=== PATIENT | female | born 1940 | race Caucasian/White ===

== ENCOUNTER → 2017-02-06 | Outpatient (CLI) | payer MEDICARE ==
[2017-02-06 09:11] LABS: ALT 39 U/L (9-52); AST 29 U/L (14-36); Alkaline Phosphatase 72 U/L (38-126); Anion Gap 10 mmol/L; Blood Urea Nitrogen 17 mg/dL (7-17); Calcium 9.4 mg/dL (8.4-10.2); Carbon Dioxide 26 mmol/L (22-30); Chloride 105 mmol/L (98-107); Cholesterol 121 mg/dL (<200); Glucose 117 mg/dL (74-99); HDL Cholesterol 52 mg/dL (40-60); Non-African American GFR(MDRD) >60 (>60 ml/min/1.73 sqM); Potassium 4.5 mmol/L (3.5-5.1); Sodium 141 mmol/L (137-145); Total Bilirubin 0.4 mg/dL (0.2-1.3); Total Protein 6.8 g/dL (6.3-8.2); Triglycerides 89 mg/dL (<150)
== END | disposition home or self-care (01) ==
LOC: LABWHC1 08:10
PROVIDERS: ATTEND Internal Medicine Interventional Cardiology
DX: E78.2 Mixed hyperlipidemia (principal)
CPT/HCPCS: 36415; 80053; 80061

== ENCOUNTER → 2017-03-30 | Outpatient (CLI) | payer MEDICARE ==
--- NOTE | 2017-03-31 05:43 | CONS ---
Consultation note for sleep apnea. 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 The patient is known to have coronary artery disease and she had undergone a coronary stent several years back. Dr. Chong, her manager small business, was suspicious that she may have an underlying sleep breathing disorder. She snores. She has an overbite. She is obese with a BMI of 32. She has a thick neck. She reports to go to bed around 10 p.m. She wakes up at 6 a.m. in the morning. She feels a bit fatigued and not refreshed. She wakes up and watches the news and drinks coffee. She is able to get by the day without having to take a nap in the morning; however, in the afternoon she may take a nap depending on whether she is feeling tired and sleepy. She prefers to sleep on her side. Denies waking up in the middle of the night gasping for air or with any choking sensation. However, she has nocturia. She has gained some weight over the years and she is around 10 to 15 pounds above her original body weight over the past 5 years. No nocturnal heartburn. She does clench and has some mild grinding of the teeth and she wears a bite guard. She is to a dentist and her daughter is a dentist and she has special interest in designing appliance for sleep apnea in addition. PAST MEDICAL HISTORY: 1. Obesity. 2. Coronary artery disease, previous coronary stenting. 3. Hyperlipidemia. 4. Clenching and grinding of the teeth. SURGICAL HISTORY: Surgical history includes cardiac catheterization, insertion of a stent. This was done in [place], [place]. ALLERGIES: Allergies are not known. MEDICATIONS: Medications are ( ) 5 mg p.o. q. day; Lipitor 40 mg p.o. q. day, aspirin 81 mg p.o. q. day, vitamin D3, 2000 units q. day and multivitamin 1 tablet a day. SOCIAL HISTORY: The patient is a nonsmoker, no history of alcoholism, no history of IV drugs. FAMILY HISTORY: Brother has obstructive sleep apnea. REVIEW OF SYSTEMS: Twelve point review of systems was done and all of the positive findings were mentioned above in the history of present illness. PHYSICAL EXAMINATION: BP 166/64, pulse 74, respirations 16, temperature 97.5, saturation 95% on room air. Weight is 184. Height is 5 feet 3 inches. Neck size is 16-1/4. GENERAL APPEARANCE: Calm, comfortable. HEENT: There is overbite, probably around half an inch. Crowding of posterior pharynx, Mallampati class 3. Some mild grinding of the teeth. She has a short thick neck. LUNGS: Clear to auscultation. HEART: Sounds regular rate and rhythm. Normal S1, S2. No S3s, no murmurs. ABDOMEN: Soft, nontender. No organomegaly. EXTREMITIES: No edema, no cyanosis or clubbing. IMPRESSION: 1. Loud snoring with suspected obstructive sleep apnea, currently under investigation. 2. Coronary artery disease with previous coronary stent. 3. Hyperlipidemia. 4. Overbite. 5. Grinding/clenching. PLAN: 1. Encourage weight loss. 2. Proceed with a home sleep study to screen this patient for obstructive sleep apnea. 3. The patient comes in from a family dentist and she may decide to go with a dental oral appliance if she is confirmed to have mild to moderate obstructive sleep apnea. 4. Will continue to follow, make further recommendations based on her sleep results. THELMA
== END ==
LOC: SLEEP 14:28
PROVIDERS: ATTEND Internal Medicine Critical Care Medicine
DX: R06.83 Snoring (principal); I25.10 Atherosclerotic heart disease of native coronary artery without angina pectoris; E78.5 Hyperlipidemia, unspecified; G47.63 Sleep related bruxism; Z79.899 Other long term (current) drug therapy
CPT/HCPCS: 99211

== ENCOUNTER 2017-07-28 08:00 | Day surgery (SDC) | payer MEDICARE ==
[2017-07-16 15:39] VITALS: BMI 32.2
[~2017-07-28 08:00] MED LIST: LACTATED RINGERS 1,000 ML IV SCH; ONDANSETRON 4 MG/2 ML VIAL IVP PRN
[2017-07-28 08:44] VITALS: RESP 16; TEMP 97.5
[2017-07-28] MEDS ORDERED: LIDOCAINE 1% 20 ML VIAL (10MG/ML) FOR IV START INTRADERMA ONE (08:51)
[2017-07-28] MEDS ORDERED: PROPOFOL 10 MG/ML 20 ML VIAL IV ONE (09:03)
--- NOTE | 2017-07-28 09:25 | P.PCN ---
Date of Procedure: 07/28/17 Procedure(s) Performed: BRIEF HISTORY: Patient is a 77-year-old pleasant white female scheduled for an elective colonoscopy as a part of screening for colorectal neoplasia PROCEDURE PERFORMED: Colonoscopy with snare polypectomy. PREOPERATIVE DIAGNOSIS: For colon cancer. IV sedation per Anesthesia. PROCEDURE: After informed consent was obtained, the patient, was brought into the endoscopy unit. IV sedation was administered by Anesthesia under continuous monitoring. Digital rectal examination was normal. Initially the Olympus CF- 160 flexible video colonoscope was then inserted in the rectum, gradually advanced into the cecum without any difficulty. Careful examination was performed as the scope was gradually being withdrawn. Ileocecal valve and the appendiceal orifice were visualized and appeared normal. Prep was excellent. Mucosa of the cecum, appeared normal. On the ileocecal valve there was 1cm polyp that was removed by snare polypectomy. The ascending colon, transverse colon, appeared normal. The descending colon there was another 1 mL polyp removed by snare polypectomy. Rest of the descending colon, sigmoid colon, and rectum appeared normal. Retroflexion was performed in the rectum and no lesions were seen. The patient tolerated the procedure well. IMPRESSION: 1. 1 cm polyp on the ileocecal valve status post snare polypectomy 2. 1 cm descending colon polyp status post snare polypectomy 3. Scattered sigmoid diverticulosis RECOMMENDATIONS: Findings of this examination were discussed with the patient as well as her family. She was advised to follow with the biopsy results. If the biopsy shows a tubular adenoma, she can have a repeat colonoscopy in 3 years.
[2017-07-28 10:05] VITALS: BP 172/74; PULSE 55
== END 2017-07-28 10:22 | disposition home or self-care (01) ==
LOC: ORWHC2ENDO 08:00
PROVIDERS: ATTEND Internal Medicine Gastroenterology
DX: Z12.11 Encounter for screening for malignant neoplasm of colon (principal); D12.4 Benign neoplasm of descending colon; D17.5 Benign lipomatous neoplasm of intra-abdominal organs; K57.30 Diverticulosis of large intestine without perforation or abscess without bleeding; I25.10 Atherosclerotic heart disease of native coronary artery without angina pectoris; I10 Essential (primary) hypertension; G47.33 Obstructive sleep apnea (adult) (pediatric); K21.9 Gastro-esophageal reflux disease without esophagitis; Z79.82 Long term (current) use of aspirin; Z79.899 Other long term (current) drug therapy; Z85.828 Personal history of other malignant neoplasm of skin; Z95.5 Presence of coronary angioplasty implant and graft
CPT/HCPCS: 45385; 88305; J2704

== ENCOUNTER → 2018-02-09 | Outpatient (CLI) | payer MEDICARE ==
[2018-02-09 08:23] LABS: Albumin 4.3 g/dL (3.5-5.0); Calcium 9.7 mg/dL (8.4-10.2); Potassium 4.7 mmol/L (3.5-5.1); Total Bilirubin 0.3 mg/dL (0.2-1.3); Total Protein 6.7 g/dL (6.3-8.2)
== END | disposition home or self-care (01) ==
LOC: LABWHC1 07:22
PROVIDERS: ATTEND Internal Medicine Interventional Cardiology
DX: E78.2 Mixed hyperlipidemia (principal)
CPT/HCPCS: 36415; 80053; 80061

== ENCOUNTER 2018-03-31 14:23 | Emergency (ER) | payer MEDICARE ==
[2018-03-31 14:29] VITALS: RESP 18; TEMP 97.9
[2018-03-31 15:09] LABS: Basophils % (A) 0 %; Eosinophils # (A) 0.1 k/uL (0-0.7); Eosinophils % (A) 1 %; HCT 39.3 % (34.0-46.0); HGB 12.7 gm/dL (11.4-16.0); Lymphocytes # (A) 1.4 k/uL (1.0-4.8); Lymphocytes % (A) 13 %; MCH 28.6 pg (25.0-35.0); MCHC 32.3 g/dL (31.0-37.0); MCV 88.5 fL (80.0-100.0); Mean Platelet Volume 7.2; Monocytes # (A) 0.5 k/uL (0-1.0); Monocytes % (A) 5 %; Neutrophils # (A) 8.4 k/uL (1.3-7.7); Neutrophils % (A) 79 %; Platelet Count 212 k/uL (150-450); RBC 4.44 m/uL (3.80-5.40); RDW 13.5 % (11.5-15.5); WBC 10.6 k/uL (3.8-10.6)
--- NOTE | 2018-03-31 15:10 | XR ---
EXAMINATION TYPE: XR chest 2V DATE OF EXAM: 03/31/2018 COMPARISON: NONE HISTORY: Shortness of breath TECHNIQUE: Frontal and lateral views of the chest are obtained. FINDINGS: Scattered senescent parenchymal changes noted. Hyperinflation compatible with COPD. No evidence for infiltrate. No evidence for atelectasis. Heart size is stable. Mediastinal structures are stable and grossly unremarkable. No evidence for hilar prominence. Degenerative changes dorsal spine. IMPRESSION: 1. No evidence for acute pulmonary disease.
[2018-03-31 15:11] LABS: Calcium 9.8 mg/dL (8.4-10.2); Potassium 4.5 mmol/L (3.5-5.1); Total Bilirubin 0.4 mg/dL (0.2-1.3); Total Protein 6.8 g/dL (6.3-8.2)
[2018-03-31 15:12] LABS: INR 1.1 (<1.2); Partial Thromboplastin Time 24.7 sec (22.0-30.0); Prothrombin Time 10.3 sec (9.0-12.0)
[2018-03-31 15:18] LABS: Creatine Kinase 138 U/L (30-135)
--- NOTE | 2018-03-31 15:26 | ED ---
General Adult HPI - General Chief complaint: Recheck/Abnormal Lab/Rx Stated complaint: abnormal EKG Source: patient Mode of arrival: wheelchair Limitations: no limitations - History of Present Illness Initial comments: Dictation was produced using [employer] dictation software. please excuse any grammatical, word or spelling errors. Chief Complaint: 77-year-old female with past medical history of cancer, hypertension, dyslipidemia presents with epigastric abdominal pain and EKG abnormalities. History of Present Illness: Patient is 77-year-old female presents with epigastric abdominal pain, EKG abnormalities. Patient has been having these symptoms since early this morning. She localizes the pain to her epigastric and right upper quadrant region. Patient states she still has her gallbladder. Denies any other abdominal surgeries. She was at her primary care physician' s office where an EKG was performed showing new-onset right bundle branch block. Patient denies any chest pain. She does have history of of coronary artery disease. She does have history of stents. At the time that she received her states that she had shoulder pain. Denies any shoulder pain today. No shortness of breath. Denies any constitutional symptoms. The ROS documented in this emergency department record has been reviewed and confirmed by me. Those systems with pertinent positive or negative responses have been documented in the HPI. All other systems are other negative and/or noncontributory. - Related Data Home Medications Medication Instructions Recorded Confirmed Aspirin 162 mg PO DAILY 07/16/17 03/31/18 Atorvastatin [Lipitor] 40 mg PO HS 07/16/17 03/31/18 Bisoprolol [Zebeta] 10 mg PO DAILY 07/16/17 03/31/18 Cholecalciferol [Vitamin D3] 1,000 unit PO DAILY 07/16/17 03/31/18 Multivit with Calcium,Iron,Min 1 tab PO DAILY 07/16/17 03/31/18 [Women's Multivitamin] Allergies Allergy/AdvReac Type Severity Reaction Status Date / Time lisinopril AdvReac Cough Verified 03/31/18 15:11 Review of Systems ROS Statement: Those systems with pertinent positive or pertinent negative responses have been documented in the HPI. ROS Other: All systems not noted in ROS Statement are negative. Past Medical History Past Medical History: Cancer, Hyperlipidemia, Hypertension Additional Past Medical History / Comment(s): hx. skin cancer, probable sleep apnea, cologard positive History of Any Multi-Drug Resistant Organisms: None Reported Past Surgical History: Heart Catheterization With Stent Additional Past Surgical History / Comment(s): colonoscopy Past Anesthesia/Blood Transfusion Reactions: No Reported Reaction Date of Last Stent Placement:: 2014 Past Psychological History: No Psychological Hx Reported Smoking Status: Never smoker Past Alcohol Use History: Rare Past Drug Use History: None Reported - Past Family History Mother Family Medical History: No Reported History General Exam - General Exam Comments Initial Comments: PHYSICAL EXAM: General Impression: Alert and oriented x3, not in acute distress HEENT: Normocephalic atraumatic, extra-ocular movements intact, pupils equal and reactive to light bilaterally, mucous membranes moist. Cardiovascular: Heart regular rate and rhythm, S1&S2 audible, no murmurs, rubs or gallops Chest: Lungs clear to auscultation bilaterally, no rhonchi, no wheeze, no rales Abdomen: Mild tenderness to the right upper quadrant Musculoskeletal: Pulses present and equal in all extremities, no peripheral edema Motor: Power 5/5 bilaterally, no focal deficits noted Neurological: CN II-XII grossly intact, no focal motor or sensory deficits noted Skin: Intact with no visualized rashes Psych: Normal affect and mood Limitations: no limitations Course Vital Signs 03/31/18 03/31/18 03/31/18 14:25 15:38 16:06 Temperature 97.9 F Pulse Rate 60 55 L 61 Respiratory 18 18 18 Rate Blood Pressure 193/75 214/88 198/104 O2 Sat by Pulse 97 99 Oximetry 03/31/18 17:41 Temperature Pulse Rate 69 Respiratory 18 Rate Blood Pressure 186/88 O2 Sat by Pulse 98 Oximetry Medical Decision Making - Medical Decision Making ED course: 79-year-old female with multiple comorbidities presents with epigastric pain and new onset EKG changes. Vital signs upon arrival are within acceptable limits. Laboratory evaluation obtained. CBC unremarkable. Cardiac panel unremarkable. Chem panel is unremarkable. Cardiac enzymes are negative. Chest x-ray shows no evidence of pulmonary disease. Abdominal ultrasound shows cholelithiasis. Right upper quadrant ultrasound was obtained showing large Cherelle lithiasis. No findings to suggest on ultrasound or laboratory evaluation findings to suggest acute cholecystitis versus choledocholithiasis. Discussed with patient that she would likely benefit from cholecystectomy however does not need to be emergent or urgent. Told of warning signs to prompt medical attention. Patient told to avoid fatty foods until seen by general surgeon. Told to return to the emergency Department with any fever or worsening right upper quadrant tenderness. Patient given outpatient follow-up for general surgery. Patient understandable agreeable to disposition. At this point there is no clinical suspicion of cardiac process given that she has clinical presentation consistent with a symptomatically cholelithiasis. EKG Interpretation: A 12 lead EKG was obtained. It was interpreted by myself and attending physician. There is a P wave before every QRS complex. Rate is 63. Rhythm is sinus rhythm, OH interval 286, QS 122, QTC 429. QT is not prolonged. No ST segment depression or elevation. Consistent with right bundle branch block - Lab Data Result diagrams: 03/31/18 14:48 03/31/18 14:48 Lab Results 03/31/18 03/31/18 03/31/18 Range/Units 14:48 14:48 14:48 WBC 10.6 (3.8-10.6) k/uL RBC 4.44 (3.80-5.40) m/uL Hgb 12.7 (11.4-16.0) gm/dL Hct 39.3 (34.0-46.0) % MCV 88.5 (80.0-100.0) fL MCH 28.6 (25.0-35.0) pg MCHC 32.3 (31.0-37.0) g/dL RDW 13.5 (11.5-15.5) % Plt Count 212 (150-450) k/uL Neutrophils % 79 % Lymphocytes % 13 % Monocytes % 5 % Eosinophils % 1 % Basophils % 0 % Neutrophils # 8.4 H (1.3-7.7) k/uL Lymphocytes # 1.4 (1.0-4.8) k/uL Monocytes # 0.5 (0-1.0) k/uL Eosinophils # 0.1 (0-0.7) k/uL Basophils # 0.0 (0-0.2) k/uL PT (9.0-12.0) sec INR (<1.2) APTT (22.0-30.0) sec Sodium 137 (137-145) mmol/L Potassium 4.5 (3.5-5.1) mmol/L Chloride 103 (98-107) mmol/L Carbon Dioxide 27 (22-30) mmol/L Anion Gap 7 mmol/L BUN 18 H (7-17) mg/dL Creatinine 0.78 (0.52-1.04) mg/dL Est GFR (CKD-EPI)AfAm 85 (>60 ml/min/1.73 sqM) Est GFR (CKD-EPI)NonAf 73 (>60 ml/min/1.73 sqM) Glucose 103 H (74-99) mg/dL Calcium 9.8 (8.4-10.2) mg/dL Magnesium 2.0 (1.6-2.3) mg/dL Total Bilirubin 0.4 (0.2-1.3) mg/dL AST 34 (14-36) U/L ALT 46 (9-52) U/L Alkaline Phosphatase 77 (38-126) U/L Total Creatine Kinase 138 H (30-135) U/L CK-MB (CK-2) 2.8 H* (0.0-2.4) ng/mL CK-MB (CK-2) Rel Index 2.0 Troponin I <0.012 (0.000-0.034) ng/mL Total Protein 6.8 (6.3-8.2) g/dL Albumin 4.0 (3.5-5.0) g/dL Lipase (23-300) U/L 03/31/18 03/31/18 Range/Units 14:48 14:48 WBC (3.8-10.6) k/uL RBC (3.80-5.40) m/uL Hgb (11.4-16.0) gm/dL Hct (34.0-46.0) % MCV (80.0-100.0) fL MCH (25.0-35.0) pg MCHC (31.0-37.0) g/dL RDW (11.5-15.5) % Plt Count (150-450) k/uL Neutrophils % % Lymphocytes % % Monocytes % % Eosinophils % % Basophils % % Neutrophils # (1.3-7.7) k/uL Lymphocytes # (1.0-4.8) k/uL Monocytes # (0-1.0) k/uL Eosinophils # (0-0.7) k/uL Basophils # (0-0.2) k/uL PT 10.3 (9.0-12.0) sec INR 1.1 (<1.2) APTT 24.7 (22.0-30.0) sec Sodium (137-145) mmol/L Potassium (3.5-5.1) mmol/L Chloride (98-107) mmol/L Carbon Dioxide (22-30) mmol/L Anion Gap mmol/L BUN (7-17) mg/dL Creatinine (0.52-1.04) mg/dL Est GFR (CKD-EPI)AfAm (>60 ml/min/1.73 sqM) Est GFR (CKD-EPI)NonAf (>60 ml/min/1.73 sqM) Glucose (74-99) mg/dL Calcium (8.4-10.2) mg/dL Magnesium (1.6-2.3) mg/dL Total Bilirubin (0.2-1.3) mg/dL AST (14-36) U/L ALT (9-52) U/L Alkaline Phosphatase (38-126) U/L Total Creatine Kinase (30-135) U/L CK-MB (CK-2) (0.0-2.4) ng/mL CK-MB (CK-2) Rel Index Troponin I (0.000-0.034) ng/mL Total Protein (6.3-8.2) g/dL Albumin (3.5-5.0) g/dL Lipase 79 (23-300) U/L Disposition Clinical Impression: Cholelithiasis Disposition: HOME SELF-CARE Condition: Good Is patient prescribed a controlled substance at d/c from ED?: No Referrals: Spencer Guerrero MD [Primary Care Provider] - 1-2 days Shahram De La Torre MD [STAFF PHYSICIAN] - 1-2 days Time of Disposition: 17:56
[2018-03-31] MEDS ORDERED: ONDANSETRON 4 MG/2 ML VIAL IVP STA (15:29)
[2018-03-31 15:31] LABS: Troponin I <0.012 ng/mL (0.000-0.034)
[2018-03-31 15:34] LABS: Creatine Kinase MB 2.8 ng/mL (0.0-2.4)
[2018-03-31] MEDS ORDERED: MAG HYDROX/AL HYDROX/SIMETH 30 ML, HYOSCYAMINE ELIXIR 10 ML, CIMETIDINE HCL 300 MG, LID... PO STA ×4 (15:48)
[2018-03-31] MEDS ORDERED: NITROGLYCERIN SL TABS 0.4 MG TAB SUBLINGUAL PRN (17:23)
[2018-03-31] MEDS ORDERED: ASPIRIN 81 MG PO STA (17:23)
--- NOTE | 2018-03-31 17:43 | US ---
EXAMINATION TYPE: US abdomen complete DATE OF EXAM: 03/31/2018 COMPARISON: NONE CLINICAL HISTORY: Pain. Abdomen pain and N/V x 1 day EXAM MEASUREMENTS: Liver Length: 16.4 cm Gallbladder Wall: 0.3 cm CBD: 0.6 cm Spleen: 10.4 cm Right Kidney: 11.6 x 4.5 x 5.2 cm Left Kidney: 11.4 x 4.7 x 5.1 cm Difficult and limited study due to patient body habitus Pancreas: visualized portions wnl, limited by overlying midline bowel gas Liver: heterogeneous Gallbladder: 3.0cm echogenic shadowing stone, wall measures in upper limits of normal Evidence for sonographic Malin's sign: no CBD: wnl Spleen: wnl Right Kidney: wnl Left Kidney: 1.1 x 1.0 x 1.3cm hypoechoic area mid pole Upper IVC: wnl Abd Aorta: wnl IMPRESSION: There is a large gallstone. No dilated ducts. No discrete liver mass.
[2018-03-31 18:28] VITALS: BP 164/80; PULSE 72
[2018-04-01] MEDS ORDERED: ASPIRIN 325 MG TAB PO SCH (09:00)
== END 2018-03-31 18:28 | disposition home or self-care (01) ==
LOC: EC 14:23
DX: K80.20 Calculus of gallbladder without cholecystitis without obstruction (principal); I45.10 Unspecified right bundle-branch block; E78.5 Hyperlipidemia, unspecified; I10 Essential (primary) hypertension; I25.10 Atherosclerotic heart disease of native coronary artery without angina pectoris; Z85.828 Personal history of other malignant neoplasm of skin; Z95.5 Presence of coronary angioplasty implant and graft; Z79.82 Long term (current) use of aspirin; Z79.899 Other long term (current) drug therapy; Z88.8 Allergy status to other drugs, medicaments and biological substances
CPT/HCPCS: 99285; 96374; 36415; 93005; 80053; 82550; 82553; 83690; 83735; 84484; 85025; 85610; 85730; 71046; 76700; J2405

== ENCOUNTER → 2018-12-07 | Outpatient (CLI) | payer MEDICARE ==
--- NOTE | 2018-12-08 09:15 | MM ---
Reason for exam: screening (asymptomatic). Last mammogram was performed 1 year and 5 months ago. History: Patient is postmenopausal and history of other cancer. Cyst aspiration of the right breast, 1963. Took estrogen for 10 years beginning at age 50. Physical Findings: A clinical breast exam by your physician is recommended on an annual basis and results should be correlated with mammographic findings. MG 3D Screening Mammo W/Cad Bilateral CC and MLO view(s) were taken. Prior study comparison: July 07, 2017, bilateral MG 3d screening mammo w/cad. February 04, 2016, bilateral MG 3d screening mammo w/cad. The breast tissue is almost entirely fat. No significant changes when compared with prior studies. ASSESSMENT: Negative, BI-RAD 1 RECOMMENDATION: Routine screening mammogram of both breasts in 1 year.
== END | disposition home or self-care (01) ==
LOC: RADMAMWWP 08:10
PROVIDERS: ATTEND Family Medicine
DX: Z12.31 Encounter for screening mammogram for malignant neoplasm of breast (principal)
CPT/HCPCS: 77063; 77067

== ENCOUNTER → 2019-02-21 | Outpatient (CLI) | payer MEDICARE ==
[2019-02-21 15:37] LABS: African American GFR (CKD) 81.3 (60.0-200.0); Albumin 4.5 g/dL (3.80-4.90); Albumin/Globulin Ratio 2.65 (1.60-3.17); Anion Gap 6.3 mmol/L (4.00-12.00); Calcium 9.7 mg/dL (8.7-10.3); Carbon Dioxide 27.7 mmol/L (21.6-31.8); Globulin 1.7 g/dL (1.6-3.3); LDL Cholesterol,Calculated 35.8 mg/dL (0.0-131.0); Potassium 4.7 mmol/L (3.5-5.5); Total Bilirubin 0.4 mg/dL (0.2-1.2); Total Protein 6.2 g/dL (6.2-8.2); VLDL Calculation 33.2 mg/dL (5.00-40.00)
== END | disposition home or self-care (01) ==
LOC: LABWHC1 08:03
PROVIDERS: ATTEND Internal Medicine Interventional Cardiology
DX: E78.2 Mixed hyperlipidemia (principal)
CPT/HCPCS: 36415; 80053; 80061

== ENCOUNTER → 2020-02-21 | Outpatient (CLI) | payer MEDICARE ==
[2020-02-21 16:51] LABS: African American GFR (CKD) 80.7 (60.0-200.0); Albumin 4.4 g/dL (3.80-4.90); Albumin/Globulin Ratio 2.44 (1.60-3.17); Anion Gap 7.4 mmol/L (4.00-12.00); Calcium 9.6 mg/dL (8.7-10.3); Carbon Dioxide 25.6 mmol/L (21.6-31.8); Chol/HDL Ratio 2.84; Globulin 1.8 g/dL (1.6-3.3); LDL Cholesterol,Calculated 54.4 mg/dL (0.0-131.0); Non-African American GFR(CKD) 69.6 (60.0-200.0); Potassium 4.4 mmol/L (3.5-5.5); Total Bilirubin 0.4 mg/dL (0.3-1.2); Total Protein 6.2 g/dL (6.2-8.2); VLDL Calculation 24.6 mg/dL (5.00-40.00)
== END | disposition home or self-care (01) ==
LOC: LABWHC1 08:07
PROVIDERS: ATTEND Internal Medicine Interventional Cardiology
DX: E78.2 Mixed hyperlipidemia (principal)
CPT/HCPCS: 36415; 80053; 80061

== ENCOUNTER 2022-02-24 09:00 | Observation (INO) | payer MEDICARE ==
[2022-02-24] MEDS ORDERED: SODIUM CHLORIDE 0.9% 1,000 ML IV STA ×2 (09:17)
[2022-02-24 09:34] LABS: Basophils % (A) 1 %; Eosinophils # (A) 0.1 k/uL (0-0.7); Eosinophils % (A) 3 %; HCT 35.8 % (34.0-46.0); HGB 11.7 gm/dL (11.4-16.0); Lymphocytes # (A) 1.5 k/uL (1.0-4.8); Lymphocytes % (A) 30 %; MCH 28.9 pg (25.0-35.0); MCHC 32.7 g/dL (31.0-37.0); MCV 88.5 fL (80.0-100.0); Mean Platelet Volume 7.6; Monocytes # (A) 0.3 k/uL (0-1.0); Monocytes % (A) 6 %; Neutrophils # (A) 2.8 k/uL (1.3-7.7); Neutrophils % (A) 58 %; Platelet Count 200 k/uL (150-450); RBC 4.05 m/uL (3.80-5.40); RDW 13.1 % (11.5-15.5); WBC 4.9 k/uL (3.8-10.6)
[2022-02-24 09:51] LABS: Albumin 4.1 g/dL (3.5-5.0); Calcium 9.4 mg/dL (8.4-10.2); Potassium 4.2 mmol/L (3.5-5.1); Total Bilirubin 0.4 mg/dL (0.2-1.3); Total Protein 6.7 g/dL (6.3-8.2)
--- NOTE | 2022-02-24 10:08 | ED ---
Dizziness HPI - General Chief Complaint: Dizziness Stated Complaint: Dizziness Time Seen by Provider: 02/24/22 09:10 Source: EMS, RN notes reviewed Mode of arrival: EMS Limitations: no limitations - History of Present Illness Initial Comments: 81-year-old female with a history of cardiac stents 7 years ago history of hypertension who had the onset yesterday of dizziness with unsteady gait. Her blood pressure was elevated. She states it got better during the day and it is somewhat recurred last night when she woke up this point she was feeling well but then started developing recurrent dizziness with the unsteady gait. No focal weakness to her arms or legs she states she has some visual changes for her vision wasn't totally clear. Patient does states she had cataract surgery with 2 different types of lenses and has had difficulty in the past but this seems somewhat different. She is at rest she states she has no dizziness he has no palpitations she does note her blood pressure was trending high. She saw her doctor this morning and she was sent here for further evaluation. No chest pain no palpitations no overt headache fevers chills nausea vomiting sweats. MD Complaint: dizziness, lightheadedness, difficulty walking - Related Data Home Medications Medication Instructions Recorded Confirmed Aspirin 162 mg PO DAILY 07/16/17 03/31/18 Atorvastatin [Lipitor] 40 mg PO HS 07/16/17 03/31/18 Bisoprolol [Zebeta] 10 mg PO DAILY 07/16/17 03/31/18 Cholecalciferol [Vitamin D3] 1,000 unit PO DAILY 07/16/17 03/31/18 Multivit with Calcium,Iron,Min 1 tab PO DAILY 07/16/17 03/31/18 [Women's Multivitamin] Allergies Allergy/AdvReac Type Severity Reaction Status Date / Time lisinopril AdvReac Cough Verified 02/24/22 09:13 Review of Systems ROS Statement: Those systems with pertinent positive or pertinent negative responses have been documented in the HPI. ROS Other: All systems not noted in ROS Statement are negative. Past Medical History Past Medical History: Cancer, Hyperlipidemia, Hypertension Additional Past Medical History / Comment(s): hx. skin cancer, probable sleep apnea, cologard positive History of Any Multi-Drug Resistant Organisms: None Reported Past Surgical History: Heart Catheterization With Stent Additional Past Surgical History / Comment(s): colonoscopy Past Anesthesia/Blood Transfusion Reactions: No Reported Reaction Date of Last Stent Placement:: 2014 Past Psychological History: No Psychological Hx Reported Past Alcohol Use History: Rare Past Drug Use History: None Reported - Past Family History Mother Family Medical History: No Reported History General Exam - General Exam Comments Initial Comments: This is a well-developed well-nourished awake alert oriented 4 female Limitations: no limitations General appearance: alert, in no apparent distress Head exam: Present: atraumatic, normocephalic, normal inspection Eye exam: Present: normal appearance, PERRL, EOMI. Absent: scleral icterus, conjunctival injection, periorbital swelling ENT exam: Present: mucous membranes dry Neck exam: Present: normal inspection. Absent: tenderness, meningismus, lymphadenopathy Respiratory exam: Present: normal lung sounds bilaterally. Absent: respiratory distress, wheezes, rales, rhonchi, stridor Cardiovascular Exam: Present: regular rate, normal rhythm, normal heart sounds. Absent: systolic murmur, diastolic murmur, rubs, gallop, clicks GI/Abdominal exam: Present: soft, normal bowel sounds. Absent: distended, tend erness, guarding, rebound, rigid Extremities exam: Present: normal inspection, full ROM, normal capillary refill. Absent: tenderness, pedal edema, joint swelling, calf tenderness Back exam: Present: normal inspection Neurological exam: Present: alert, oriented X3, CN II-XII intact Psychiatric exam: Present: normal affect, normal mood Skin exam: Present: warm, dry, intact, normal color. Absent: rash Course Vital Signs 02/24/22 02/24/22 09:04 13:19 Temperature 98.2 F Pulse Rate 61 58 L Respiratory 20 16 Rate Blood Pressure 234/94 196/69 O2 Sat by Pulse 97 99 Oximetry EKG Findings - EKG Results: EKG: interpreted by ERMD, sinus rhythm (Sinus bradycardia rate 50. Interval 230 to QRS duration 134 daily since QTC 414/414 interventricular conduction delay first-degree AV block poor R-wave progression) Medical Decision Making - Medical Decision Making Patient arrest appears to be with no symptoms however when she tries to move around at all she does get some symptoms. Patient was sent in by Dr. Guerrero patient will be admitted for evaluation by neurology. - Lab Data Result diagrams: 02/24/22 09:19 02/24/22 09:19 Lab Results 02/24/22 02/24/22 02/24/22 Range/Units 09:19 09:19 09:19 WBC 4.9 (3.8-10.6) k/uL RBC 4.05 (3.80-5.40) m/uL Hgb 11.7 (11.4-16.0) gm/dL Hct 35.8 (34.0-46.0) % MCV 88.5 (80.0-100.0) fL MCH 28.9 (25.0-35.0) pg MCHC 32.7 (31.0-37.0) g/dL RDW 13.1 (11.5-15.5) % Plt Count 200 (150-450) k/uL MPV 7.6 Neutrophils % 58 % Lymphocytes % 30 % Monocytes % 6 % Eosinophils % 3 % Basophils % 1 % Neutrophils # 2.8 (1.3-7.7) k/uL Lymphocytes # 1.5 (1.0-4.8) k/uL Monocytes # 0.3 (0-1.0) k/uL Eosinophils # 0.1 (0-0.7) k/uL Basophils # 0.0 (0-0.2) k/uL Sodium 138 (137-145) mmol/L Potassium 4.2 (3.5-5.1) mmol/L Chloride 107 (98-107) mmol/L Carbon Dioxide 25 (22-30) mmol/L Anion Gap 6 mmol/L BUN 20 H (7-17) mg/dL Creatinine 0.82 (0.52-1.04) mg/dL Est GFR (CKD-EPI)AfAm 77 (>60 ml/min/1.73 sqM) Est GFR (CKD-EPI)NonAf 67 (>60 ml/min/1.73 sqM) Glucose 128 H (74-99) mg/dL Calcium 9.4 (8.4-10.2) mg/dL Total Bilirubin 0.4 (0.2-1.3) mg/dL AST 25 (14-36) U/L ALT 24 (4-34) U/L Alkaline Phosphatase 77 (38-126) U/L Creatine Kinase 84 (30-135) U/L Troponin I (0.000-0.034) ng/mL Total Protein 6.7 (6.3-8.2) g/dL Albumin 4.1 (3.5-5.0) g/dL Urine Color Colorless Urine Appearance Clear (Clear) Urine pH 5.5 (5.0-8.0) Ur Specific [place] 1.019 (1.001-1.035) Urine Protein Negative (Negative) Urine Glucose (UA) Negative (Negative) Urine Ketones Negative (Negative) Urine Blood Negative (Negative) Urine Nitrite Negative (Negative) Urine Bilirubin Negative (Negative) Urine Urobilinogen <2.0 (<2.0) mg/dL Ur Leukocyte Esterase Negative (Negative) 02/24/22 Range/Units 09:19 WBC (3.8-10.6) k/uL RBC (3.80-5.40) m/uL Hgb (11.4-16.0) gm/dL Hct (34.0-46.0) % MCV (80.0-100.0) fL MCH (25.0-35.0) pg MCHC (31.0-37.0) g/dL RDW (11.5-15.5) % Plt Count (150-450) k/uL MPV Neutrophils % % Lymphocytes % % Monocytes % % Eosinophils % % Basophils % % Neutrophils # (1.3-7.7) k/uL Lymphocytes # (1.0-4.8) k/uL Monocytes # (0-1.0) k/uL Eosinophils # (0-0.7) k/uL Basophils # (0-0.2) k/uL Sodium (137-145) mmol/L Potassium (3.5-5.1) mmol/L Chloride (98-107) mmol/L Carbon Dioxide (22-30) mmol/L Anion Gap mmol/L BUN (7-17) mg/dL Creatinine (0.52-1.04) mg/dL Est GFR (CKD-EPI)AfAm (>60 ml/min/1.73 sqM) Est GFR (CKD-EPI)NonAf (>60 ml/min/1.73 sqM) Glucose (74-99) mg/dL Calcium (8.4-10.2) mg/dL Total Bilirubin (0.2-1.3) mg/dL AST (14-36) U/L ALT (4-34) U/L Alkaline Phosphatase (38-126) U/L Creatine Kinase (30-135) U/L Troponin I <0.012 (0.000-0.034) ng/mL Total Protein (6.3-8.2) g/dL Albumin (3.5-5.0) g/dL Urine Color Urine Appearance (Clear) Urine pH (5.0-8.0) Ur Specific [place] (1.001-1.035) Urine Protein (Negative) Urine Glucose (UA) (Negative) Urine Ketones (Negative) Urine Blood (Negative) Urine Nitrite (Negative) Urine Bilirubin (Negative) Urine Urobilinogen (<2.0) mg/dL Ur Leukocyte Esterase (Negative) - Radiology Data Radiology results: report reviewed (Imaging reviewed no acute processes seen some evidence of obstruction the carotid), image reviewed Disposition Clinical Impression: Dizziness, TIA (transient ischemic attack) Disposition: ADMITTED IP TO THIS [facility] Condition: Stable Referrals: Spencer Guerrero MD [Primary Care Provider] - 1-2 days Decision Date: 02/24/22 Decision Time: 13:00
--- NOTE | 2022-02-24 10:37 | CT ---
EXAMINATION TYPE: CT brain wo con CT DLP: 1166.4 mGycm, Automated exposure control for dose reduction was used. DATE OF EXAM: 02/24/2022 10:31 AM COMPARISON: None. CLINICAL INDICATION:Female, 81 years old with history of Neuro deficit, acute, stroke suspected, HTN and Dizziness TECHNIQUE: Brain: Multiple axial CT images of the brain were obtained without IV contrast. Coronal and sagittal reformats were reviewed. FINDINGS: Brain: Extra-axial spaces: No abnormal extra-axial fluid collections. Ventricular system: Within normal limits Cerebral parenchyma: No acute intraparenchymal hemorrhage or mass effect. The johnson-white junction is well differentiated. Cerebral volume loss. Cerebellum: Unremarkable. Mass effect: No evidence of midline shift. Intracranial vasculature: Atherosclerotic calcifications of the intracranial vessels. Soft tissues: Normal. Calvarium/osseous structures: No depressed skull fracture. Paranasal sinuses and mastoid air cells: Clear Visualized orbits: Bilateral aphakia IMPRESSION: No acute intracranial process.
--- NOTE | 2022-02-24 11:08 | CT ---
EXAMINATION TYPE: CT angio head neck CT DLP: 605.9 mGycm, Automated exposure control for dose reduction was used. DATE OF EXAM: 02/24/2022 10:58 AM COMPARISON: CT brain of the same date. CLINICAL INDICATION:Female, 81 years old with history of Neuro deficit, acute, stroke suspected; Dizz iness and HTN TECHNIQUE: Axially acquired helical CT angiogram of the head and neck was obtained with contrast util izing 65 cc of Isovue-370 administered intravenously. Axial images are supplemented with 3D reconstru ctions which were post-processed at an independent workstation. NASCET criteria used. FINDINGS: CTA HEAD: No evidence of acute intracranial hemorrhage, mass effect, or midline shift. The ventricles, sulci, a nd cisterns are unremarkable. The visualized portions of the internal carotid arteries, middle cerebral arteries, anterior cerebral arteries, and posterior cerebral arteries are patent. The basilar and vertebral arteries are patent. CTA NECK: Right Carotid System: The common carotid artery and external carotid artery are patent. Less than 50% stenosis at the carot id bifurcation secondary to calcified plaque. The remaining portions of the internal carotid artery d emonstrate normal size without significant narrowing. Left Carotid System: The common carotid artery and external carotid artery are patent. The carotid bifurcation demonstrate s no evidence of hemodynamically significant stenosis. The remaining portions of the internal carotid artery demonstrate normal size without significant narrowing. Vertebral arteries are patent without evidence hemodynamically significant stenosis. There is a three-vessel aortic arch. The origins of the great vessels are patent. No evidence of hemo dynamically significant stenosis. Enlarged multinodular goiter with substernal extension into the med iastinum. There is tracheal deviation to the left. IMPRESSION: 1. No evidence of dissection of the cervical internal carotid arteries or vertebral arteries. 2. Less than 50% stenosis at the right carotid bifurcation secondary to calcified plaque. 3. No evidence of high-grade stenosis or intracranial aneurysm.
[2022-02-24 13:06] LABS: Appearance,Urine Clear (Clear); Bilirubin,Urine Negative (Negative); Blood,Urine Negative (Negative); Color,Urine Colorless; Glucose,Urine (UA) Negative (Negative); Ketones,Urine Negative (Negative); Leukocyte Esterase,Urine Negative (Negative); Nitrite,Urine Negative (Negative); PH, Urine 5.5 (5.0-8.0); Protein,Urine Negative (Negative); Specific Gravity,Urine 1.019 (1.001-1.035); Urobilinogen,Urine <2.0 mg/dL (<2.0)
[2022-02-24] MEDS ORDERED: cloNIDine HCL 0.1 MG TAB PO STA (13:32)
--- NOTE | 2022-02-24 14:07 | ED ---
Medical Decision Making - Lab Data Result diagrams: 02/24/22 09:19 02/24/22 09:19 Lab Results 02/24/22 02/24/22 02/24/22 Range/Units 09:19 09:19 09:19 WBC 4.9 (3.8-10.6) k/uL RBC 4.05 (3.80-5.40) m/uL Hgb 11.7 (11.4-16.0) gm/dL Hct 35.8 (34.0-46.0) % MCV 88.5 (80.0-100.0) fL MCH 28.9 (25.0-35.0) pg MCHC 32.7 (31.0-37.0) g/dL RDW 13.1 (11.5-15.5) % Plt Count 200 (150-450) k/uL MPV 7.6 Neutrophils % 58 % Lymphocytes % 30 % Monocytes % 6 % Eosinophils % 3 % Basophils % 1 % Neutrophils # 2.8 (1.3-7.7) k/uL Lymphocytes # 1.5 (1.0-4.8) k/uL Monocytes # 0.3 (0-1.0) k/uL Eosinophils # 0.1 (0-0.7) k/uL Basophils # 0.0 (0-0.2) k/uL Sodium 138 (137-145) mmol/L Potassium 4.2 (3.5-5.1) mmol/L Chloride 107 (98-107) mmol/L Carbon Dioxide 25 (22-30) mmol/L Anion Gap 6 mmol/L BUN 20 H (7-17) mg/dL Creatinine 0.82 (0.52-1.04) mg/dL Est GFR (CKD-EPI)AfAm 77 (>60 ml/min/1.73 sqM) Est GFR (CKD-EPI)NonAf 67 (>60 ml/min/1.73 sqM) Glucose 128 H (74-99) mg/dL Calcium 9.4 (8.4-10.2) mg/dL Total Bilirubin 0.4 (0.2-1.3) mg/dL AST 25 (14-36) U/L ALT 24 (4-34) U/L Alkaline Phosphatase 77 (38-126) U/L Creatine Kinase 84 (30-135) U/L Troponin I (0.000-0.034) ng/mL Total Protein 6.7 (6.3-8.2) g/dL Albumin 4.1 (3.5-5.0) g/dL Urine Color Colorless Urine Appearance Clear (Clear) Urine pH 5.5 (5.0-8.0) Ur Specific Rohwer 1.019 (1.001-1.035) Urine Protein Negative (Negative) Urine Glucose (UA) Negative (Negative) Urine Ketones Negative (Negative) Urine Blood Negative (Negative) Urine Nitrite Negative (Negative) Urine Bilirubin Negative (Negative) Urine Urobilinogen <2.0 (<2.0) mg/dL Ur Leukocyte Esterase Negative (Negative) 02/24/22 Range/Units 09:19 WBC (3.8-10.6) k/uL RBC (3.80-5.40) m/uL Hgb (11.4-16.0) gm/dL Hct (34.0-46.0) % MCV (80.0-100.0) fL MCH (25.0-35.0) pg MCHC (31.0-37.0) g/dL RDW (11.5-15.5) % Plt Count (150-450) k/uL MPV Neutrophils % % Lymphocytes % % Monocytes % % Eosinophils % % Basophils % % Neutrophils # (1.3-7.7) k/uL Lymphocytes # (1.0-4.8) k/uL Monocytes # (0-1.0) k/uL Eosinophils # (0-0.7) k/uL Basophils # (0-0.2) k/uL Sodium (137-145) mmol/L Potassium (3.5-5.1) mmol/L Chloride (98-107) mmol/L Carbon Dioxide (22-30) mmol/L Anion Gap mmol/L BUN (7-17) mg/dL Creatinine (0.52-1.04) mg/dL Est GFR (CKD-EPI)AfAm (>60 ml/min/1.73 sqM) Est GFR (CKD-EPI)NonAf (>60 ml/min/1.73 sqM) Glucose (74-99) mg/dL Calcium (8.4-10.2) mg/dL Total Bilirubin (0.2-1.3) mg/dL AST (14-36) U/L ALT (4-34) U/L Alkaline Phosphatase (38-126) U/L Creatine Kinase (30-135) U/L Troponin I <0.012 (0.000-0.034) ng/mL Total Protein (6.3-8.2) g/dL Albumin (3.5-5.0) g/dL Urine Color Urine Appearance (Clear) Urine pH (5.0-8.0) Ur Specific Rohwer (1.001-1.035) Urine Protein (Negative) Urine Glucose (UA) (Negative) Urine Ketones (Negative) Urine Blood (Negative) Urine Nitrite (Negative) Urine Bilirubin (Negative) Urine Urobilinogen (<2.0) mg/dL Ur Leukocyte Esterase (Negative) Disposition Clinical Impression: Dizziness, TIA (transient ischemic attack), Hypertension Disposition: ADMITTED IP TO THIS [facility] Condition: Stable Referrals: Spencer Guerrero MD [Primary Care Provider] - 1-2 days
[2022-02-24] MEDS ORDERED: hydroCHLOROthiazide 12.5 MG CAP PO SCH (15:00)
[2022-02-24] MEDS: LOSARTAN 50 MG TAB PO SCH (15:10)
--- NOTE | 2022-02-24 16:20 | US ---
EXAMINATION TYPE: US carotid duplex BILAT DATE OF EXAM: 02/24/2022 COMPARISON: CTa CLINICAL HISTORY: stroke. Stroke per order. Hypertension, hyperlipidemia. EXAM MEASUREMENTS: RIGHT: Peak Systolic Velocity (PSV) cm/sec ----- Right CCA: 103.0 ----- Right ICA: 91.9 ----- Right ECA: 324.7 ICA/CCA ratio: 0.9 RIGHT: End Diastole cm/sec ----- Right CCA: 13.7 ----- Right ICA: 16.0 ----- Right ECA: 0.0 LEFT: Peak Systolic Velocity (PSV) cm/sec ----- Left CCA: 99.1 ----- Left ICA: 95.3 ----- Left ECA: 78.2 ICA/CCA ratio: 1.0 LEFT: End Diastole cm/sec ----- Left CCA: 13.7 ----- Left ICA: 16.3 ----- Left ECA: 0.0 VERTEBRALS (direction of flow): Right Vertebral: Antegrade Left Vertebral: Antegrade Rhythm: Elevated velocity within right ECA. Intimal thickening seen bilaterally. Plaque seen within bilateral bulb. Grayscale, color Doppler, spectral Doppler imaging performed the carotid arteries. Waveform a nalysis does not show significant stenosis of the internal carotid arteries. IMPRESSION: No hemodynamic significant stenosis of the proximal internal carotid arteries by Doppler criteria, an indirect measurement of carotid stenosis Criteria for Assigning % of Stenosis / Diameter reduction (Estimation based on the indirect measurements of the internal carotid artery velocities (ICA PSV). 1. Normal (no stenosis)=ICA PSV < 125 cm/s: ratio < 2.0: ICA EDV<40 cm/s. 2. Less than 50% stenosis=ICA PSV < 125 cm/s: ratio < 2.0: ICA EDV<40 cm/s. 3. 50 to 69% stenosis=ICA PSV of 125 to 230 cm/s: ration 2.0 ? 4.0: ICA EDV 40-100 cm/s. 4. Greater than 70% stenosis to near occlusion= ICA PSV > 230 cm/s: ratio > 4.0: ICA EDV > 100 cm/s. 5. Near occlusion= ICA PSV velocities may be low or undetectable: variable ratio and ICA EDV. 6. Total occlusion=unable to detect flow.
--- NOTE | 2022-02-24 17:37 | HP ---
HISTORY AND PHYSICAL CHIEF COMPLAINT: Dizziness. HISTORY OF PRESENT ILLNESS: This 81-year-old woman with a past medical history of hypertension, hyperlipidemia, being followed by Dr. Spencer Guerrero in the outpatient setting is complaining of dizziness. The patient was unable to walk from one room to another yesterday. There was no vertigo per se. The dizziness persisted today and then when seen in Dr. Guerrero's office and directed to [facility] for further evaluation and treatment. The initial CT of the brain, which was reviewed personally by me, showed no acute changes and CT angio was also done in the ER which showed less than 50% stenosis of the right carotid bifurcation. Patient admitted for further evaluation and treatment. There is no history of fever, rigors, chills. PAST MEDICAL HISTORY: History of hypertension, hyperlipidemia. MEDICATIONS: Reviewed and include Cozaar. Dose and rest of medication noted. ALLERGIES: LISINOPRIL. FAMILY HISTORY: No history of heart disease or strokes in the family. SOCIAL HISTORY: Occasional alcohol intake. REVIEW OF SYSTEMS: 14-point review is negative except as mentioned earlier. PHYSICAL EXAMINATION: Pulse is 58, blood pressure 119/69, respirations 16. HEENT: Conjunctivae normal. NECK: No JVD. CARDIOVASCULAR: S1, S2 normal. RESPIRATIONS: Breath sounds diminished in the bases. A few scattered rhonchi and crackles. ABDOMEN: Soft, nontender. No mass palpable. LEGS: No edema. No swelling. NERVOUS SYSTEM: Higher functions as mentioned earlier. Moves all 4 limbs. Otherwise no focal motor or sensory deficits. No signs of cerebellar dysfunction deficits. SKIN: No ulcer, rash or bleeding. JOINTS: No active deforming arthropathy. LABS: CBC within normal limits. Glucose 128. ASSESSMENT: 1. Dizziness, possible acute transient ischemic attack. 2. Hypertension. 3. Hyperlipidemia. 4. History of coronary artery disease/stent. RECOMMENDATIONS AND DISCUSSION: This 81-year-old woman who presented with multiple complex medical issues, at this time I recommend to continue current neuro checks. Complete neurovascular workup. Neurology evaluation. Antiplatelet agents. Monitor blood pressure closely. Prognosis guarded because of multiple complex medical issues. I would also continue with Lipitor as well. Repeat labs. Discussed with the patient's family and we will also obtain an MRI after neurology clearance and further recommendations to follow. A copy of dictation being forwarded to Dr. Spencer Guerrero. MMODL / IJN: [id number] /
[2022-02-24] MEDS: SODIUM CHLORIDE 0.9% 1,000 ML IV SCH (18:13)
[2022-02-24] MEDS ORDERED: ATORVASTATIN 40 MG TAB PO SCH (21:00)
[2022-02-25] MEDS: SODIUM CHLORIDE 0.9% 1,000 ML IV SCH ×2 (00:41→11:04)
[2022-02-25] MEDS: LOSARTAN 50 MG TAB PO SCH (08:14)
[2022-02-25] MEDS ORDERED: CHOLECALCIFEROL 25 MCG (1000 IU) TABLET PO SCH (09:00)
[2022-02-25] MEDS ORDERED: ASPIRIN 81 MG PO SCH (09:00)
[2022-02-25] MEDS ORDERED: METOPROLOL SUCCINATE (ER) 25 MG TAB.ER.24H PO SCH (09:00)
[2022-02-25] MEDS ORDERED: BISOPROLOL 5 MG TAB PO SCH (09:00)
[2022-02-25] MEDS ORDERED: MULTIVITAMINS, THERA 1 EACH TAB PO SCH (09:00)
[2022-02-25 09:28] LABS: BUN/Creat Ratio 22.56 Ratio (12.00-20.00); Blood Urea Nitrogen 20.3 mg/dL (9.0-27.0); Calcium 9.3 mg/dL (8.7-10.3); Carbon Dioxide 22.1 mmol/L (20.0-27.5); Chloride 106 mmol/L (96-109); Chol/HDL Ratio 2.78 Ratio; Glucose 98 mg/dL (70-110); LDL Cholesterol,Calculated 44.6 mg/dL (0.0-131.0); Non-African American GFR(CKD) 59.5 (60.0-200.0); Potassium 4.2 mmol/L (3.5-5.5); Sodium 139 mmol/L (135-145)
[2022-02-25 09:29] LABS: Basophils # (A) 0.03 X 10*3/uL (0.00-0.10); Basophils % (A) 0.5 %; Eosinophils # (A) 0.16 X 10*3/uL (0.04-0.35); Eosinophils % (A) 2.5 %; HCT 34.3 % (37.2-46.3); HGB 10.7 g/dL (12.0-15.0); Immature Grans, Automated 0.2 %; Lymphocytes # (A) 1.64 X 10*3/uL (0.90-5.00); Lymphocytes % (A) 26.1 %; MCH 27.9 pg (27.0-32.0); MCHC 31.2 g/dL (32.0-37.0); MCV 89.6 fL (80.0-97.0); Monocytes # (A) 0.52 X 10*3/uL (0.20-1.00); Monocytes % (A) 8.3 %; NRBC Per 100 WBC 0 /100 WBCS (0.0-0.0); Neutrophils # (A) 3.92 X 10*3/uL (1.80-7.70); Neutrophils % (A) 62.4 %; Platelet Count 186 X 10*3/uL (140-440); RBC 3.83 X 10*6/uL (4.10-5.20); RDW 13.3 % (11.5-14.5); WBC 6.28 X 10*3/uL (4.50-10.00)
--- NOTE | 2022-02-25 09:30 | CA ---
Transthoracic Echo Report Name: Annette Rankin Age: 81 Gender: F : 1940 Exam Date: 02/24/2022 14:59 Exam Location: [place] [facility] Ht (in): 63 Wt (lb): 178 Ordering Physician: Federico Colbert MD Attending/Referring Phys: [employer] Alesia Alvarado RDCS Procedure CPT: Indications: stroke Cardiac Hx: Technical Quality: Fair Contrast 1: Total Dose (mL): Contrast 2: Total Dose (mL): MEASUREMENTS (Male / Female) Normal Values 2D ECHO LV Diastolic Diameter PLAX 3.4 cm 4.2 - 5.9 / 3.9 - 5.3 cm LV Systolic Diameter PLAX 1.5 cm IVS Diastolic Thickness 1.0 cm 0.6 - 1.0 / 0.6 - 0.9 cm LVPW Diastolic Thickness 1.3 cm 0.6 - 1.0 / 0.6 - 0.9 cm LV Relative Wall Thickness 0.7 RV Internal Dim ED PLAX 2.8 cm LA Volume 53.1 cm??? 18 - 58 / 22 - 52 cm??? M-MODE Aortic Root Diameter MM 2.3 cm LA Systolic Diameter MM 4.2 cm LA Ao Ratio MM 1.8 AV Cusp Separation MM 1.5 cm DOPPLER AV Peak Velocity 220.9 cm/s AV Peak Gradient 19.5 mmHg AV Mean Velocity 167.8 cm/s AV Mean Gradient 12.5 mmHg AV Velocity Time Integral 64.5 cm LVOT Peak Velocity 115.4 cm/s LVOT Peak Gradient 5.3 mmHg MV Area PHT 3.3 cm??? Mitral E Point Velocity 107.8 cm/s Mitral A Point Velocity 110.7 cm/s Mitral E to A Ratio 1.0 MV Deceleration Time 232.7 ms MV E' Velocity 8.8 cm/s Mitral E to MV E' Ratio 12.3 TR Peak Velocity 159.0 cm/s TR Peak Gradient 10.1 mmHg Right Ventricular Systolic Press 15.1 mmHg FINDINGS Left Ventricle Mildly increased septal wall thickness. Mildly increased posterior wall thickness. Normal left ventricular systolic function with no obvious regional wall motion abnormalities. Left ventricular ejection fraction is estimated at 55-60 %. Normal left ventricular diastolic filling pattern. Right Ventricle Normal right ventricular size and function. Right ventricular systolic pressure within normal limits. Right Atrium Normal right atrial size. Left Atrium Mildly increased left atrial volume. No evidence for an atrial septal defect. Mitral Valve Structurally normal mitral valve. No mitral stenosis, regurgitation or prolapse. Aortic Valve Mild aortic stenosis with a peak gradient of 20 mmHg and a mean gradient of 13 mmHg. No aortic regurgitation. Tricuspid Valve Structurally normal tricuspid valve. Mild tricuspid regurgitation. Pulmonic Valve Trace pulmonic regurgitation. Pericardium No pericardial effusion. Aorta Normal size aortic root and proximal ascending aorta. CONCLUSIONS Technically somewhat difficult study. LV size is normal with concentric LVH and good systolic function. Left atrium is mildly enlarged. There is mild increased gradient across aortic valve with aortic valve sclerosis possibly mild stenosis. There is mitral annular calcification area no pericardial effusion. Previewed by: Dr. Braden Mills MD (Electronically Signed) Final Date: 25 February 2022 09:29
--- NOTE | 2022-02-25 09:48 | P.CRDCN ---
History of Present Illness History of present illness: HISTORY OF PRESENT ILLNESS: This is a 81-year-old female with a past medical history significant for coronary artery disease with previous stenting, hypertension, and hyperlipidemia. Patient follows in the office with Dr. Chong. We have been asked to see the patient in consultation for CAD. Patient examined at the bedside. Patient states yesterday she was outside doing some yard work and watering plants when she began to feel dizzy and unsteady on her feet. She denied having any chest pain or pressure. She denied any shortness of breath. She denied having any weakness in any of her extremities. The patient was found to be hypertensive upon arrival with systolic blood pressures in the 200s. * EKG reveals sinus mechanism with no signs of acute ischemia. Right bundle branch block. T-wave inversions in lead 3 and V3 * Carotid Doppler negative for hemodynamically significant stenosis bilaterally * Laboratory data: WBC 6.28. Hemoglobin 10.7. Platelet count 186. Sodium 139. Potassium 4.2. BUN 20. Creatinine 0.9. Troponin negative 1. * Current home cardiac medications include aspirin 162 mg daily, Bisoprolol 10mg daily, hydrochlorothiazide 12.5 mg every 48 hours, Lipitor 40 mg at night, losartan 100 mg daily * Echocardiogram completed reveals ejection fraction 55-60% with no obvious regional wall motion abnormalities, mild increased gradient across the aortic valve with aortic valve sclerosis possibly mild stenosis. * Cardiac catheterization history: 2014 revealing normal ejection fraction, 99% proximal LAD, small distal PDA and PLV with diffuse disease. Patient underwent stenting to the proximal LAD * Patient underwent Lexiscan stress test in August 2017 revealing mild basilar inferior lateral wall ischemia cannot be excluded REVIEW OF SYSTEMS: At the time of my exam: CONSTITUTIONAL: Denies fever or chills. HEENT: Denies blurred vision, vision changes, or eye pain. Denies hemoptysis CARDIOVASCULAR: Denies chest pain. Denies orthopnea. Denies PND. Denies palpitations RESPIRATORY: Denies shortness of breath. GASTROINTESTINAL: Denies abdominal pain. Denies nausea or vomiting. HEMATOLOGIC: Denies bleeding disorders. GENITOURINARY: Denies any blood in urine. SKIN: Denies pruitis. Denies rash. PHYSICAL EXAM: VITAL SIGNS: Reviewed. GENERAL: Well-developed in no acute distress. HEENT: Head is normocephalic. Pupils are equal, round. Sclerae anicteric. Mucous membranes of the mouth are moist. Neck supple. No JVD or thyromegaly LUNGS: Respirations even and unlabored. Lungs essentially clear to auscultation bilaterally. HEART: Regular rate and rhythm. S1 and S2 heard. Systolic murmur noted ABDOMEN: Soft. Nondistended. Nontender. EXTREMITIES: Normal range of motion. No clubbing or cyanosis. Peripheral pulses intact. No lower extremity edema NEUROLOGIC: Awake and alert. Oriented x 3. ASSESSMENT: Dizziness and unsteady gait, suspect benign positional vertigo, unlikely TIA Coronary artery disease with previous stenting to the LAD Hypertension, uncontrolled Hyperlipidemia PLAN: 2-D echo obtained and reviewed Resume home cardiac medications Discontinue Bisoprolol Add metoprolol succinate 25 mg daily Add amlodipine 5 mg at bedtime for optimal blood pressure control Continue to monitor blood pressure Neurology consulted. Await evaluation Patient to receive a 2 week event monitor at the time of discharge Further recommendations pending patient's course Nurse practitioner note has been reviewed by physician. Signing provider agrees with the documented findings, assessment, and plan of care. Past Medical History Past Medical History: Cancer, Hyperlipidemia, Hypertension Additional Past Medical History / Comment(s): hx. skin cancer, probable sleep apnea, cologard positive History of Any Multi-Drug Resistant Organisms: None Reported Past Surgical History: Heart Catheterization With Stent Additional Past Surgical History / Comment(s): colonoscopy Past Anesthesia/Blood Transfusion Reactions: No Reported Reaction Date of Last Stent Placement:: 2014 Past Psychological History: No Psychological Hx Reported Smoking Status: Never smoker Past Alcohol Use History: Rare Past Drug Use History: None Reported - Past Family History Mother Family Medical History: No Reported History Medications and Allergies Home Medications Medication Instructions Recorded Confirmed Type Aspirin 162 mg PO DAILY 07/16/17 02/24/22 History Atorvastatin [Lipitor] 40 mg PO HS 07/16/17 02/24/22 History Bisoprolol [Zebeta] 10 mg PO DAILY 07/16/17 02/24/22 History Multivit with Calcium,Iron,Min 1 tab PO DAILY 07/16/17 02/24/22 History [Women's Multivitamin] Cholecalciferol [Vitamin D3 (25 25 mcg PO DAILY 02/24/22 02/24/22 History Mcg = 1000 Iu)] Losartan Potassium [Cozaar] 100 mg PO DAILY 02/24/22 02/24/22 History hydroCHLOROthiazide 12.5 mg PO Q48H 02/24/22 02/24/22 History Allergies Allergy/AdvReac Type Severity Reaction Status Date / Time lisinopril AdvReac Cough Verified 02/24/22 14:14 Physical Exam Vitals: Vital Signs Temp Pulse Pulse Resp BP BP Pulse Ox 02/25/22 07:00 98 F 66 12 170/60 97 02/25/22 02:00 98.4 F 64 17 145/54 97 02/24/22 20:31 97.7 F 59 L 17 147/76 98 02/24/22 17:46 60 153/67 02/24/22 15:15 62 18 186/80 98 02/24/22 15:00 97.6 F 58 L 20 196/64 98 02/24/22 13:19 58 L 16 196/69 99 02/24/22 09:04 98.2 F 61 20 234/94 97 Intake and Output 02/24/22 02/25/22 02/25/22 22:59 06:59 14:59 Other: Voiding Method Toilet Toilet # Voids 1 3 Weight 80.739 kg Results 02/25/22 03:51 02/25/22 03:51 Cardiac Enzymes 02/24/22 02/24/22 Range/Units 09:19 09:19 AST 25 (14-36) U/L Troponin I <0.012 (0.000-0.034) ng/mL CBC 02/24/22 Range/Units 09:19 WBC 4.9 (3.8-10.6) k/uL RBC 4.05 (3.80-5.40) m/uL Hgb 11.7 (11.4-16.0) gm/dL Hct 35.8 (34.0-46.0) % Plt Count 200 (150-450) k/uL Comprehensive Metabolic Panel 02/24/22 Range/Units 09:19 Sodium 138 (137-145) mmol/L Potassium 4.2 (3.5-5.1) mmol/L Chloride 107 (98-107) mmol/L Carbon Dioxide 25 (22-30) mmol/L BUN 20 H (7-17) mg/dL Creatinine 0.82 (0.52-1.04) mg/dL Glucose 128 H (74-99) mg/dL Calcium 9.4 (8.4-10.2) mg/dL AST 25 (14-36) U/L ALT 24 (4-34) U/L Alkaline Phosphatase 77 (38-126) U/L Total Protein 6.7 (6.3-8.2) g/dL Albumin 4.1 (3.5-5.0) g/dL Current Medications Generic Name Dose Route Start Last Admin Trade Name Wolf PRN Reason Stop Dose Admin Aspirin 162 mg 02/25/22 09:00 02/25/22 08:14 Aspirin 81 Mg PO 162 mg DAILY HOA Administration Atorvastatin Calcium 40 mg 02/24/22 21:00 02/24/22 20:24 Atorvastatin 40 Mg Tab PO 40 mg HS HOA Administration Cholecalciferol 25 mcg 02/25/22 09:00 02/25/22 08:14 Cholecalciferol 25 Mcg (1000 Iu) Tablet PO 25 mcg DAILY HOA Administration Hydrochlorothiazide 12.5 mg 02/24/22 15:00 02/24/22 17:19 Hydrochlorothiazide 12.5 Mg Cap PO 12.5 mg Q48H HOA Administration Sodium Chloride 1,000 mls @ 100 mls/hr 02/24/22 14:15 02/25/22 00:41 Saline 0.9% IV Not Given .Q10H HOA Losartan Potassium 100 mg 02/24/22 15:00 02/25/22 08:14 Losartan 50 Mg Tab PO 100 mg DAILY HOA Administration Metoprolol Succinate 25 mg 02/25/22 09:00 Metoprolol Succinate (Er) 25 Mg Tab.Er.24h PO DAILY [facility] Multivitamins 1 each 02/25/22 09:00 02/25/22 08:14 Multivitamins, Thera 1 Each Tab PO 1 each DAILY HOA Administration Intake and Output 02/24/22 02/25/22 02/25/22 22:59 06:59 14:59 Other: Voiding Method Toilet Toilet # Voids 1 3 Weight 80.739 kg 02/24/22 09:19 02/24/22 09:19
--- NOTE | 2022-02-25 12:37 | P.CNNES ---
History of Present Illness Consult date: 02/25/22 Requesting physician: Nick Gutierrez Reason for Consult: Dizziness, rule out TIA History of Present Illness: Patient is a 81-year-old female with history of hypertension, CAD, came to the hospital by ambulance yesterday at 9 AM for evaluation of dizziness, imbalance. Patient states that her symptoms started on Wednesday, 2 days ago, when she felt slightly dizzy, like off balance in the morning. Her symptoms improved during middle of the day, but came back in the evening, and she felt "fuzzy headed". She went to sleep. Yesterday on Wednesday, she woke up at 5:30 AM, as usual and was feeling fine. She watered the plants, fixed the breakfast, when suddenly at around 7:45 AM, it hit her, with dizziness. She just felt off balance, couldn't walk by herself. There were no other strokelike symptoms like headache, facial droop, slurred speech, problem with the vision, double vision, loss of vision, focal numbness, tingling or focal weakness. Patient checked her blood pressure was 203/97. Patient's took her to Dr. Guerrero, her primary care physician, who rents an EKG and other tests. Her blood pressure remained high, therefore he called the ambulance and patient was brought to the hospital. According to EMS flow sheet, when they arrived, patient was alert but complains of feeling "foggy" and not like herself. Patient also felt slightly weaker than normal. Patient's vitals at the scene was blood pressure 205/72, pulse rate 61 respiration 20 saturation 96%. Repeat blood pressure was 211/78. Blood pressure on arrival was 234/94, which then improved to 196/69. Pulse rate 61. Temperature 98.2. Blood pressure was normal CBC, CMP, troponin negative, cholesterol 115, LDL 44, HDL [address] triglycerides [address] UA negative. CT head showed no acute intracranial process. Patient states that after she was given medication to control blood pressure, and by the time she arrived to the floor at 2-3 p.m., the symptoms completely resolved. At present she has no symptoms and she is back to baseline, wants to go home. Patient's was also present, who concurred that she is back to baseline and is walking well. Patient's home medications include aspirin 162 mg, Lipitor 40 mg, bisoprolol, HCTZ, losartan and vitamin D. Patient denies any history of diabetes. She has never smoked, drinks alcohol very very little. She has hypertension for last 56 years. 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 Patient denies any problem with chest pain, abdominal pain, nausea vomiting diarrhea. All other review of systems reviewed, unremarkable. Past Medical History Past Medical History: Cancer, Hyperlipidemia, Hypertension Additional Past Medical History / Comment(s): hx. skin cancer, probable sleep apnea, cologard positive History of Any Multi-Drug Resistant Organisms: None Reported Past Surgical History: Heart Catheterization With Stent Additional Past Surgical History / Comment(s): colonoscopy Past Anesthesia/Blood Transfusion Reactions: No Reported Reaction Date of Last Stent Placement:: 2014 Past Psychological History: No Psychological Hx Reported Smoking Status: Never smoker Past Alcohol Use History: Rare Past Drug Use History: None Reported - Past Family History Mother Family Medical History: No Reported History Medications and Allergies Home Medications Medication Instructions Recorded Confirmed Type Aspirin 162 mg PO DAILY 07/16/17 02/24/22 History Atorvastatin [Lipitor] 40 mg PO HS 07/16/17 02/24/22 History Multivit with Calcium,Iron,Min 1 tab PO DAILY 07/16/17 02/24/22 History [Women's Multivitamin] Cholecalciferol [Vitamin D3 (25 25 mcg PO DAILY 02/24/22 02/24/22 History Mcg = 1000 Iu)] Losartan Potassium [Cozaar] 100 mg PO DAILY #15 tab 02/25/22 Rx Metoprolol Succinate (ER) [Toprol 25 mg PO DAILY #30 tab 02/25/22 Rx XL] amLODIPine [Norvasc] 5 mg PO HS #30 tab 02/25/22 Rx hydroCHLOROthiazide 12.5 mg PO Q48H #15 cap 02/25/22 Rx Allergies Allergy/AdvReac Type Severity Reaction Status Date / Time lisinopril AdvReac Cough Verified 02/24/22 14:14 Physical Examination - Vital Signs Vital Signs: Vital Signs Temp Pulse Pulse Resp BP BP Pulse Ox 02/25/22 07:00 98 F 66 12 170/60 97 02/25/22 02:00 98.4 F 64 17 145/54 97 02/24/22 20:31 97.7 F 59 L 17 147/76 98 02/24/22 17:46 60 153/67 02/24/22 15:15 62 18 186/80 98 02/24/22 15:00 97.6 F 58 L 20 196/64 98 02/24/22 13:19 58 L 16 196/69 99 Intake and Output 02/24/22 02/25/22 02/25/22 22:59 06:59 14:59 Other: Voiding Method Toilet Toilet # Voids 1 3 Weight 80.739 kg Patient is an elderly female, very pleasant, in no acute distress. Patient is alert awake oriented to time place and person. Speech and language functions are normal. Patient can name and repeat very well. No aphasia or dysarthria. No paraphasic errors. Attention, concentration and fund of knowledge is adequate. On cranial examination, pupils are equal, round and reacting to light, visual daniel are full on confrontation, with no loss of vision on double simultaneous stimulation. Her extraocular muscles are intact with no nystagmus. Face is symmetric, tongue protrudes to the midline. Palatal elevation and sensation normal, hearing and shoulder shrug normal, facial sensation normal. Shoulder shrug normal. On muscle strength testing, there is no pronator drift and the strength is normal in arms and legs distally and proximally. Deep tendon reflexes are symmetric and plantars downgoing. Sensory to touch is equal with no neglect on double simultaneous stimulation. Cerebellar function showed no ataxia for [id number] testing. No dysdiadochokinesia. Tone and bulk of muscles normal. Gait deferred. On general examination, there is no carotid bruit or murmur, S1-S2 audible. Abdomen is soft nontender. No organomegaly, bowel sounds present. Chest is clear. Peripheral pulses are present. No edema. Results - Laboratory Findings CBC and BMP: 02/25/22 03:51 02/25/22 03:51 Abnormal Lab Findings: Abnormal Labs 02/24/22 02/25/22 02/25/22 09:19 03:51 03:51 RBC 3.83 L Hgb 10.7 L Hct 34.3 L MCHC 31.2 L BUN 20 H Est GFR (CKD-EPI)NonAf 59.5 L BUN/Creatinine Ratio 22.56 H Glucose 128 H Assessment and Plan Assessment: * Gait imbalance, dizziness, probably due to accelerated hypertension/hypertensive urgency. TIA in the differential. * Hypertension * Coronary artery disease * Hyperlipidemia, controlled. Plan: * It appears patient's symptoms were related to accelerated hypertension/hypertensive urgency. TIA also the differential. Patient's symptoms have completely resolved. Her neurological examination is completely normal, with NIH stroke scale 0. Need to aggressively control vascular risk factors including hypertension. * CTA of neck showed no evidence of dissection of the cervical internal carotid arteries or vertebral arteries. Less than 50% stenosis of the right carotid bifurcation secondary to calcified plaque. No evidence of high-grade stenosis or intracranial aneurysm. * 2-D echo revealed technically difficult study. Left-ventricular size is normal with concentric LVH and good systolic function. Left atrium is mildly enlarged. Mild aortic stenosis. Mitral annular calcification. EF is normal 55-60%. * Carotid Doppler revealed no hemodynamic significant stenosis of the proximal ICAs. Antegrade flow in both vertebral arteries. * Lipid panel with cholesterol 115, LDL 44, HDL 41 and triglycerides 145. Continue Lipitor 40 mg daily. * Agree with checking event monitor. * We will check B12, folate, A1c. Results can be followed up as an outpatient. * Neurologically clear for discharge. Discussed with patient's nurse. Update 02/26/2022: Received blood test results. Patient's cholesterol is 115, LDL 44, HDL 41, triglycerides 145. All normal. Hemoglobin A1c 6.0 B12 394, folate > 20.0. Called patient's home and informed the results.
[2022-02-25 13:11] VITALS: RESP 14; TEMP 97.2
[2022-02-25 16:14] VITALS: BP 166/69; PULSE 66
[2022-02-25] MEDS ORDERED: amLODIPine 5 MG TAB PO SCH (21:00)
--- NOTE | 2022-02-25 23:24 | P.DS ---
Providers Date of admission: 02/24/22 14:05 Attending physician: Federico Colbert Consults: 02/24/22 14:05 Consult Physician Routine Consulting Provider: Kamryn Norris Consult Reason/Comments: Dizziness, rule out TIA Do you want consulting provider notified?: Yes 02/24/22 14:42 Consult Physician Routine Consulting Provider: Jessie Chong Consult Reason/Comments: cad Do you want consulting provider notified?: Yes Primary care physician: Spencer Guerrero Hospital Course: Diagnoses: Period of dizziness, could be benign positional vertigo. Completely resolved Hypertension, controlled on admission. History of coronary artery disease Hyperlipidemia Hospital course: This is a pleasant 81 years old female with past medical history of hypertension, hyperlipidemia. Presents because of periods of dizziness and blurred vision with difficulty walking which is completely resolved now. Patient insists that she is back to her normal self and currently she denies any headache or dizziness. No weakness or numbness. No blurred vision or slurred speech. Because of this transient dizziness is unknown, patient evaluated by checker and neurologist, benign positional vertigo is suspected, also mateus banerjee has uncontrolled hypertension and her blood pressure medication was adjusted by checker. Her blood pressure start improving and prior to discharge was 166/69. Patient was asymptomatic and she was adamant to go home today, actually she was already done. And sitting at the bedside ready to go home. Patient will be discharged with event monitor and follow-up with checker in 2 weeks. Patient was cleared for discharge by both checker and neurologist Problems and management plan were discussed with the patient and he verbalized understanding and acceptance Patient was found stable and can be discharged home in guarded prognosis however he needs follow-up as an outpatient. Patient was instructed to follow up with PCP within one week and patient agrees Patient was instructed to follow up with checker Dr. Chong in 1-2 weeks. Also patient was instructed to follow up with a neurologist Dr. Ramirez in one to two weeks and she agrees Physical exam Gen: patient is a AAOx3, no distress CVS: S1-S2, RRR, no murmur Lungs: B/L CTA, no wheezing Abdomen: soft, no distention, no tenderness, positive bowel sounds Extremity: no leg edema or induration Time spent more than 35 minutes Patient Condition at Discharge: Stable Plan - Discharge Summary New Discharge Prescriptions: New amLODIPine [Norvasc] 5 mg PO HS #30 tab Metoprolol Succinate (ER) [Toprol XL] 25 mg PO DAILY #30 tab Continue Atorvastatin [Lipitor] 40 mg PO HS Aspirin 162 mg PO DAILY Multivit with Calcium,Iron,Min [Women's Multivitamin] 1 tab PO DAILY hydroCHLOROthiazide 12.5 mg PO Q48H #15 cap Cholecalciferol [Vitamin D3 (25 Mcg = 1000 Iu)] 25 mcg PO DAILY Losartan Potassium [Cozaar] 100 mg PO DAILY #15 tab Discontinued Bisoprolol [Zebeta] 10 mg PO DAILY Discharge Medication List Aspirin 162 mg PO DAILY 07/16/17 [History] Atorvastatin [Lipitor] 40 mg PO HS 07/16/17 [History] Multivit with Calcium,Iron,Min [Women's Multivitamin] 1 tab PO DAILY 07/16/17 [History] Cholecalciferol [Vitamin D3 (25 Mcg = 1000 Iu)] 25 mcg PO DAILY 02/24/22 [History] Losartan Potassium [Cozaar] 100 mg PO DAILY #15 tab 02/25/22 [Rx] Metoprolol Succinate (ER) [Toprol XL] 25 mg PO DAILY #30 tab 02/25/22 [Rx] amLODIPine [Norvasc] 5 mg PO HS #30 tab 02/25/22 [Rx] hydroCHLOROthiazide 12.5 mg PO Q48H #15 cap 02/25/22 [Rx] Follow up Appointment(s)/Referral(s): Spencer Guerrero MD [Primary Care Provider] - 1-2 days Jessie Chong MD [STAFF PHYSICIAN] - 2 Weeks (follow up your event monitor ) Christa Ramirez MD [REFERRING] - 10 Days (neurologist ) Samantha Ramirez MD [REFERRING] - 10 Days (neurologist ) Patient Instructions/Handouts: Transient Ischemic Attack (DC), Chronic Hypertension (DC) Activity/Diet/Wound Care/Special Instructions: heart healthy diet activity is restricted till you see your doctor Discharge Disposition: HOME SELF-CARE
== END 2022-02-25 16:37 | disposition home or self-care (01) ==
LOC: EC 09:00 → 6NMEDSUR 14:05
PROVIDERS: ADMIT Hospitalist; ATTEND Hospitalist
DX: R42 Dizziness and giddiness (principal); I16.0 Hypertensive urgency; I65.21 Occlusion and stenosis of right carotid artery; I10 Essential (primary) hypertension; E78.5 Hyperlipidemia, unspecified; I44.0 Atrioventricular block, first degree; I25.10 Atherosclerotic heart disease of native coronary artery without angina pectoris; I45.10 Unspecified right bundle-branch block; I08.2 Rheumatic disorders of both aortic and tricuspid valves; R26.2 Difficulty in walking, not elsewhere classified; H53.9 Unspecified visual disturbance; Z79.82 Long term (current) use of aspirin; Z79.899 Other long term (current) drug therapy; Z88.8 Allergy status to other drugs, medicaments and biological substances; Z85.828 Personal history of other malignant neoplasm of skin; Z95.5 Presence of coronary angioplasty implant and graft; Z98.890 Other specified postprocedural states
CPT/HCPCS: 96360; 96361; 99285; 36415; 93005; 93306; 93270; 97161; 97165; 80061; 80053; 80048; 82607; 82550; 82746; 84484; 85025 ×2; 81003; 83036; 93880; 70496; 70450; 70498; G0378 ×2; Q9967

== ENCOUNTER → 2023-03-26 | Outpatient (CLI) | payer MEDICARE ==
[2023-03-26 15:54] LABS: ALT 29 U/L (8-44); AST 24 U/L (13-35); Albumin 4.7 d/dL (3.8-4.9); Albumin/Globulin Ratio 2.14 Ratio (1.60-3.17); Alkaline Phosphatase 77 U/L (41-126); BUN/Creat Ratio 24.44 Ratio (12.00-20.00); Calcium 10.4 mg/dL (8.7-10.3); Carbon Dioxide 28.6 mmol/L (21.6-31.8); Chloride 102 mmol/L (96-109); Chol/HDL Ratio 2.64 Ratio; Globulin 2.2 d/dL (1.6-3.3); Glucose 120 mg/dL (70-110); LDL Cholesterol,Calculated 59.7 mg/dL (0.0-131.0); Potassium 4.9 mmol/L (3.5-5.5); Sodium 141 mmol/L (135-145); Total Bilirubin 0.3 mg/dL (0.3-1.2); Total Protein 6.9 d/dL (6.2-8.2)
== END | disposition home or self-care (01) ==
LOC: LABWHC1 07:54
PROVIDERS: ATTEND Internal Medicine Interventional Cardiology
DX: E78.2 Mixed hyperlipidemia (principal)
CPT/HCPCS: 36415; 80053; 80061